=== PATIENT | male | born 1975 | race American Indian/Alaskan Native ===

== ENCOUNTER 2020-01-31 23:25 | Emergency (ER) | payer MEDICAID ==
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
== END 2020-01-31 23:31 ==
LOC: VM.ED 23:25
DX: F10.920 Alcohol use, unspecified with intoxication, uncomplicated (principal); I10 Essential (primary) hypertension
CPT/HCPCS: 99283